=== PATIENT | female | born 1990 | race Caucasian/White ===

== ENCOUNTER 2016-08-22 22:27 | Emergency (ER) | payer SELFPAY ==
[~2016-08-22] VITALS: Ht 167.6 cm; Wt 86.9 kg
[2016-08-22 23:32] VITALS: BP 121/68
[2016-08-23] MEDS ORDERED: DEXAMETHASONE 10MG/ML 1ML VIAL IM ONE (00:30)
== END 2016-08-23 06:16 | disposition home or self-care (01) ==
LOC: ER 22:28
DX: J02.9 Acute pharyngitis, unspecified (principal); I10 Essential (primary) hypertension; I73.00 Raynaud's syndrome without gangrene; Z98.890 Other specified postprocedural states
CPT/HCPCS: 96372; 99283; J1100